=== PATIENT | male | born 1975 | race Asian ===

== ENCOUNTER 2017-01-19 10:34 | Outpatient (CLI) | payer OTHER ==
[2017-01-19 11:43] LABS: POTASSIUM 3.5 mmol/L (3.6-5.2)
== END 2017-01-19 11:35 | disposition home or self-care (01) ==
LOC: RAD 10:34
PROVIDERS: Internal Medicine
DX: M54.5 Low back pain (principal); M47.896 Other spondylosis, lumbar region; R07.89 Other chest pain
CPT/HCPCS: 36415; 80053

== ENCOUNTER 2018-01-18 03:28 | Emergency (ER) | payer OTHER ==
[~2018-01-18] VITALS: Ht 165.1 cm; Wt 80.7 kg
[2018-01-18 03:31] VITALS: TEMP 97.9
[2018-01-18 04:01] LABS: PLATELET COUNT 239 K/uL (142-355)
[2018-01-18 04:14] LABS: POTASSIUM 3.4 mmol/L (3.6-5.2)
[2018-01-18 07:19] VITALS: BP 121/68
== END 2018-01-18 07:19 | disposition home or self-care (01) ==
LOC: ED 03:28
DX: N20.0 Calculus of kidney (principal); M47.9 Spondylosis, unspecified
CPT/HCPCS: 36415; 80053; 80307; 81000; 85027; 99283

== ENCOUNTER 2019-08-23 09:56 | Outpatient (CLI) | payer OTHER | END 2019-08-23 22:55 | disposition home or self-care (01) | LOC: RAD 09:56 | DX: J40 Bronchitis, not specified as acute or chronic (principal) ==

== ENCOUNTER 2019-12-27 08:24 | Outpatient (CLI) | payer OTHER | END 2019-12-27 21:58 | disposition home or self-care (01) | LOC: US 08:24 | DX: R10.11 Right upper quadrant pain (principal) ==

== ENCOUNTER 2020-03-22 14:31 | Emergency (ER) | payer OTHER ==
[~2020-03-22] VITALS: Ht 165.1 cm; Wt 81.6 kg
[2020-03-22 16:36] VITALS: BP 124/80; TEMP 99.1
== END 2020-03-22 17:10 | disposition home or self-care (01) ==
LOC: ED 14:31
DX: M54.5 Low back pain (principal); M54.2 Cervicalgia
CPT/HCPCS: 96372; 99282; 99283; J1885

== ENCOUNTER 2020-05-05 16:48 | Emergency (ER) | payer OTHER | END 2020-05-05 18:09 | disposition home or self-care (01) | LOC: ED 16:48 | DX: R05 Cough (principal); R06.02 Shortness of breath; R11.2 Nausea with vomiting, unspecified; R50.9 Fever, unspecified; R19.7 Diarrhea, unspecified | CPT/HCPCS: 99281 ==

== ENCOUNTER 2020-06-28 02:15 | Emergency (ER) | payer OTHER ==
[~2020-06-28] VITALS: Ht 165.1 cm; Wt 83.0 kg
[2020-06-28 03:25] LABS: PLATELET COUNT 243 K/uL (142-355)
[2020-06-28 03:29] LABS: POTASSIUM 3.3 mmol/L (3.6-5.2)
[2020-06-28 04:30] VITALS: BP 120/83; TEMP 98.1
== END 2020-06-28 04:30 | disposition home or self-care (01) ==
LOC: ED 02:15
PROVIDERS: Emergency Medicine
DX: R30.0 Dysuria (principal); M54.5 Low back pain; S33.5XXA Sprain of ligaments of lumbar spine, initial encounter
CPT/HCPCS: 36415; 80053; 80307; 81000; 82150; 83690; 85027; 96360; 96375; 99284; J1885

== ENCOUNTER 2021-07-09 20:05 | Emergency (ER) | payer OTHER ==
[~2021-07-09] VITALS: Ht 162.6 cm; Wt 79.8 kg
[2021-07-09 21:12] VITALS: BP 125/70; TEMP 98.7
== END 2021-07-09 21:12 | disposition home or self-care (01) ==
LOC: ED 20:05
DX: S50.11XA Contusion of right forearm, initial encounter (principal); W20.8XXA Other cause of strike by thrown, projected or falling object, initial encounter; Y92.89 Other specified places as the place of occurrence of the external cause
CPT/HCPCS: 96372; 99283; J1885

== ENCOUNTER 2021-10-02 13:21 | Emergency (ER) | payer OTHER ==
[~2021-10-02] VITALS: Ht 162.6 cm; Wt 81.6 kg
[2021-10-02 13:25] VITALS: BP 120/81; TEMP 97.9
[2021-10-02 14:32] LABS: PLATELET COUNT 232 K/uL (142-355)
[2021-10-02 14:41] LABS: POTASSIUM 3.7 mmol/L (3.6-5.2)
[2021-10-02 14:57] LABS: PARTIAL THROMBOPLASTIN TIME 24.5 SECONDS (24.5-33.6)
== END 2021-10-02 16:10 | disposition home or self-care (01) ==
LOC: ED 13:21
PROVIDERS: Hospitalist
DX: K27.9 Peptic ulcer, site unspecified, unspecified as acute or chronic, without hemorrhage or perforation (principal); M25.552 Pain in left hip; M25.551 Pain in right hip; W18.39XA Other fall on same level, initial encounter; Y92.89 Other specified places as the place of occurrence of the external cause
CPT/HCPCS: 36415; 80053; 80307; 80320; 81000; 83690; 85027; 85610; 85730; 93005; 96360; 96374; 96375; 99284; J2405; J3490

== ENCOUNTER 2022-03-04 02:41 | Emergency (ER) | payer OTHER ==
[~2022-03-04] VITALS: Ht 162.6 cm; Wt 81.6 kg
[2022-03-04 03:20] VITALS: BP 122/71; TEMP 98.9
== END 2022-03-04 03:25 | disposition home or self-care (01) ==
LOC: ED 02:41
DX: K08.89 Other specified disorders of teeth and supporting structures (principal)
CPT/HCPCS: 99282

== ENCOUNTER 2022-05-06 03:55 | Emergency (ER) | payer OTHER ==
[~2022-05-06] VITALS: Ht 165.1 cm; Wt 77.1 kg
[2022-05-06 04:55] VITALS: BP 145/88; TEMP 97.5
== END 2022-05-06 05:01 | disposition home or self-care (01) ==
LOC: ED 03:55
DX: T78.49XA Other allergy, initial encounter (principal); K08.89 Other specified disorders of teeth and supporting structures; K02.9 Dental caries, unspecified; X58.XXXA Exposure to other specified factors, initial encounter; Y92.89 Other specified places as the place of occurrence of the external cause
CPT/HCPCS: 96372; 99283; J2920

== ENCOUNTER 2023-06-21 10:17 | Outpatient (CLI) | payer OTHER | END 2023-06-21 18:52 | disposition home or self-care (01) | LOC: RAD 10:17 | PROVIDERS: ATTEND Student in an Organized Health Care Education/Training Program | DX: M47.816 Spondylosis without myelopathy or radiculopathy, lumbar region (principal); M48.062 Spinal stenosis, lumbar region with neurogenic claudication; M54.16 Radiculopathy, lumbar region ==